=== PATIENT | female | born 1960 | race Caucasian/White ===

== ENCOUNTER 2018-10-31 11:06 | Outpatient (CLI) | payer BC | END 2018-10-31 11:07 | disposition home or self-care (01) | LOC: BICMAMMO 11:06 | PROVIDERS: ATTEND Family Medicine | DX: Z12.31 Encounter for screening mammogram for malignant neoplasm of breast (principal); Z80.3 Family history of malignant neoplasm of breast | CPT/HCPCS: 77063; 77067 ==

== ENCOUNTER 2024-08-28 13:18 | Outpatient (CLI) | payer BC | END 2024-08-28 13:19 | disposition home or self-care (01) | LOC: BICRAD 13:18 | PROVIDERS: ATTEND Internal Medicine Gastroenterology | DX: K31.5 Obstruction of duodenum (principal); T18.9XXA Foreign body of alimentary tract, part unspecified, initial encounter | CPT/HCPCS: 74018 ==

== ENCOUNTER 2025-07-15 15:16 | Outpatient (CLI) | payer MEDICARE, OTHER | END 2025-07-15 15:17 | disposition home or self-care (01) | LOC: SCSBT 15:16 | PROVIDERS: ATTEND Family Medicine | DX: Z78.0 Asymptomatic menopausal state (principal); M81.0 Age-related osteoporosis without current pathological fracture | CPT/HCPCS: 77080 ==

== ENCOUNTER 2025-08-04 14:24 | Outpatient (CLI) | payer MEDICARE, OTHER | END 2025-08-04 14:25 | disposition home or self-care (01) | LOC: BICMAMMO 14:24 | PROVIDERS: ATTEND Family Medicine | DX: Z12.31 Encounter for screening mammogram for malignant neoplasm of breast (principal); Z80.3 Family history of malignant neoplasm of breast | CPT/HCPCS: 77063; 77067 ==